=== PATIENT | female | born 1960 | race Caucasian/White ===

== ENCOUNTER 2017-12-01 15:45 | Inpatient (IN) ==
[2017-12-01 16:57] LABS: Basophils % 0.7 %; Eosinophils # 0.1 K/mcL (0.0-0.6); Eosinophils % 2.4 %; Hematocrit 38.6 % (35.3-44.9); Hemoglobin 13.2 g/dL (11.5-15.4); Immature Granulocytes % 0.2 % (0-4); Lymphocytes # 1.9 K/mcL (0.6-4.6); Mean Corpuscular HGB Conc 34.2 g/dL (31.6-35.5); Mean Corpuscular Hemoglobin 30.1 pg (28.0-33.3); Mean Corpuscular Volume 87.9 fL (83.0-100.0); Mean Platelet Volume 10.9 fL (9.4-12.4); Monocytes # 0.5 K/mcL (0.0-1.3); Neutrophils # 2.8 K/mcL (1.6-8.9); Platelet Count 191 K/mcL (140-400); Red Blood Count 4.39 M/mcL (3.82-4.97); Red Cell Distribution Width 12.7 % (11.5-14.5); Segmented Neutrophils % 52.7 %
[2017-12-01 17:04] LABS: BUN/Creatinine Ratio 9 (6-26); Blood Urea Nitrogen 7 mg/dL (6-20); Calcium 10.2 mg/dL (8.6-10.3); Carbon Dioxide 23 mEq/L (23-29); Chloride 109 mEq/L (98-107); Glucose 132 mg/dL (70-105); Osmolality,Calculated 290 (280-300); Potassium 3.3 mEq/L (3.5-5.1); Sodium 140 mEq/L (136-145); Troponin I < 0.03 ng/mL (< 0.04); eGFR For Non-African Americans > 60 (> 60)
[2017-12-01] MEDS ORDERED: Isovue-370 500 ML INFUS..BTL IV ONE (17:18)
--- NOTE | 2017-12-01 17:26 | Emergency Department Note ---
Disposition Clinical Impression: Vertigo Pulmonary embolism Qualifiers: Pulmonary embolism type: other Chronicity: acute Acute cor pulmonale presence: without acute cor pulmonale Qualified Code(s): I26.99 - Other pulmonary embolism without acute cor pulmonale Disposition: Admitted As Inpatient Condition: Good Referrals: Hiro Gerber MD [Primary Care Provider] - Forms: ED Satisfaction Letter Time of Disposition: 19:05 Dizziness HPI - General Chief Complaint: ED Dizziness Stated Complaint: Dizzy Time Seen by Provider: 12/01/17 16:01 Source: patient Mode of arrival: ambulatory Limitations: no limitations Nursing Notes Reviewed: Yes Vital Signs Reviewed: Yes - History of Present Illness HPI Narrative: 57-year-old female otherwise healthy presents an emergency department with dizziness. States this is a similar episode. She was at [employer] and suddenly felt onset of dizziness room spinning. She did not fall hit her head or complaining of any headache. Certain movements make it worse. Laying still makes it better. States this feels similar to her prior history of peripheral vertigo. She denies any nausea. She also does report feeling some lightheadedness and unsteady on her feet. She did experience some shortness of breath and chest discomfort at that time. She did not fall or hit her head. No trauma. Denies any weakness or extremities. No prior history of cardiac ischemic disease. She does not have any additional meclizine available anymore. Pt Subjective Complaint: dizziness - Related Data Home Medications Medication Instructions Recorded Confirmed Fluticasone Propionate Nasal 1 spr NS DAILY PRN 12/01/17 12/01/17 [Flonase] Allergies Allergy/AdvReac Type Severity Reaction Status Date / Time No Known Allergies Allergy Verified 12/01/17 18:51 All systems ED: reviewed and negative except as stated. Review of Systems: As Per HPI Constitutional: Denies: fever, chills ENT ED: Denies: congestion Cardiovascular: Reports: chest pain Respiratory: Reports: dyspnea Gastrointestinal: Denies: abdominal pain, nausea, vomiting Musculoskeletal: Denies: back pain, neck pain Neurological: Denies: headache, weakness, numbness, confusion Past Medical History - Past Medical History Attestation: Yes The following information was validated with the patient. Source: patient Medical history: Reports: arthritis Surgical history: Reports: hysterectomy Psychiatric history: Reports: no psych history - Social History Smoking Status: Never smoker Smokeless Tobacco Status: No Alcohol use: Reports: none Drug use: Reports: none Physical Exam - General Limitations: no limitations General appearance: alert, in distress (Appears uncomfortable she is trying to lay very still) - Head Head exam: atraumatic, normocephalic, normal inspection - Eye Eye exam: Present: normal appearance, PERRL, EOMI, nystagmus (Left, fatiguable) - ENT ENT exam: normal exam, normal oropharynx, mucous membranes moist - Neck Neck exam: Present: normal inspection, full ROM, trachea midline. Absent: tenderness - Chest Chest inspection: Present: normal inspection, symmetric chest wall rise - Respiratory Respiratory exam: Present: normal lung sounds bilaterally. Absent: respiratory distress, wheezes - Cardiovascular Cardiovascular exam: Present: normal rhythm, tachycardia, normal heart sounds - Expanded Cardiovascular Exam Peripheral pulses: 2+: radial (R), radial (L) - Abdominal Exam Abdominal exam: Present: soft, Non-Tender, normal bowel sounds. Absent: tenderness, distention, guarding, rebound, rigidity - Extremities Exam Extremities exam: Present: normal inspection, full ROM, normal capillary refill. Absent: tenderness, pedal edema - Neurological Exam Neurological exam: Present: alert, oriented X3, CN II-XII intact - Expanded Neurological Exam Patient oriented to: Present: person, place, time Speech: Present: fluid speech Cranial nerves: EOM function (II, III, IV, ): Normal, facial sensation (V): Normal, facial palsy (VII): Normal, gag reflex (IX): Normal, spinal accessory function (XI): Normal, tongue deviation (XII): Normal Cerebellar function: finger to nose: Normal, heel to stevens: Normal Motor strength - LUE: 5/5 Motor strength - RUE: 5/5 Motor strength - LLE: 5/5 Motor strength - RLE: 5/5 Upper motor neuron exam: gunnar neglect: Absent bilaterally, pronator drift: Absent bilaterally Sensory exam upper extremity: light touch: Normal Sensory exam lower extremity: light touch: Normal Coma Scale Eye Opening: Spontaneous Coma Scale Motor Response: Obeys Commands Coma Scale Verbal Response: Oriented Coma Scale Total: 15 - Psychiatric Psychiatric exam: Present: normal affect, normal mood - Skin Skin exam: Present: warm, dry, intact, normal color. Absent: rash, cyanosis, diaphoresis Course Course Narrative: Patient presents with acute onset vertigo that worsens with movement and improves sitting still. History of similar presentation. Neurologic exam is normal without any focal deficits. She does have a fatigue level nystagmus that goes to the left. She is also complaining of some lightheadedness and initial shortness of breath with chest discomfort. She is tachycardic on arrival with oxygen saturation 96%. I do suspect this is likely more peripheral vertigo as she does have a nystagmus to the left in her neurologic exam is normal without any focal deficits. Will evaluate for any cardiac source including a D dimer given the tachycardia and symptoms. She is low risk of the wells score. She denies active cancer, hormone use, recent long- distance travel, immobilization or history of blood clots. Patient has been given meclizine for symptoms - Reevaluation(s) Reevaluation #1: D dimer elevated. Will obtain a CT of the chest to evaluate for possible pulmonary embolism. Her labs or otherwise unremarkable. No evidence of renal insufficiency. Troponin lesson 0.03. EKG does not reveal any acute ischemic changes. She states the Antivert is slightly improving her symptoms. Will plan to ambulate her prior to final disposition. Time: 17:18 Reevaluation #2: CT of the chest revealed bilateral pulmonary embolism. There is no evidence of right heart strain seen on CT. Patient remains hemodynamically stable. She denies any G.I. bleed symptoms such as hemoptysis, hematemesis, bloody stool or blacked tarry stools. At this time will initiate her on heparin. Patient will be admitted for treatment of her pulmonary embolism. Time: 18:17 - Consultations Consultation #1: Spoke with on-call hospitalist cristina Bain to admit for pulm embolism without RV strain otherwise hemodynamically stable and peripheral vertigo improved with Antivert. No further orders at this time Time: 19:03 Vital Signs Temperature 97.8 F 12/01/17 15:48 Pulse Rate 115 12/01/17 15:48 Respiratory Rate 18 12/01/17 15:48 Blood Pressure 148/88 12/01/17 15:48 O2 Sat by Pulse Oximetry 96 12/01/17 15:48 Temperature 97.8 F 12/01/17 15:48 Pulse Rate 99 12/01/17 17:36 Respiratory Rate 16 12/01/17 17:36 Blood Pressure 151/99 12/01/17 17:36 O2 Sat by Pulse Oximetry 98 12/01/17 17:36 Oxygen Delivery Oxygen Delivery Room Air Dizziness - MDM Narrative Medical decision making narrative: Patient was discussed with my attending physician who agrees with ED management and final disposition. They independently evaluated the patient. Please refer to their attestation to this encounter for additional information. This note was generated by [employer] voice recognition software and as a result grammatical or spelling errors may occur using this program. - Medical Records Medical records reviewed: Yes I reviewed the patient's medical records. - Lab Data Lab results reviewed: Yes I reviewed the patient's lab results. Result diagrams: 12/01/17 16:31 12/01/17 16:31 Lab Results 12/01/17 12/01/17 12/01/17 Range/Units 16:31 16:31 16:31 WBC 5.3 (4.3-11.1) K/mcL RBC 4.39 (3.82-4.97) M/mcL Hgb 13.2 (11.5-15.4) g/dL Hct 38.6 (35.3-44.9) % MCV 87.9 (83.0-100.0) fL MCH 30.1 (28.0-33.3) pg MCHC 34.2 (31.6-35.5) g/dL RDW 12.7 (11.5-14.5) % Plt Count 191 (140-400) K/mcL MPV 10.9 (9.4-12.4) fL Immature Gran % 0.2 (0-4) % Seg Neutrophils % 52.7 % Lymphocytes % 35.0 % Monocytes % 9.0 % Eosinophils % 2.4 % Basophils % 0.7 % Neutrophils # 2.8 (1.6-8.9) K/mcL Lymphocytes # 1.9 (0.6-4.6) K/mcL Monocytes # 0.5 (0.0-1.3) K/mcL Eosinophils # 0.1 (0.0-0.6) K/mcL Basophils # 0.0 (0.0-0.2) K/mcL D-Dimer 989 H (0-500) ng/mLFEU Sodium 140 (136-145) mEq/L Potassium 3.3 L (3.5-5.1) mEq/L Chloride 109 H (98-107) mEq/L Carbon Dioxide 23 (23-29) mEq/L BUN 7 (6-20) mg/dL Creatinine 0.76 (0.60-1.20) mg/dL Est GFR ( Amer) > 60 (> 60) Est GFR (Non-Af Amer) > 60 (> 60) BUN/Creatinine Ratio 9 (6-26) Glucose 132 H (70-105) mg/dL Calculated Osmolality 290 (280-300) Calcium 10.2 (8.6-10.3) mg/dL Troponin I < 0.03 (< 0.04) ng/mL - Radiology Data Radiology results reviewed: Yes I reviewed the patient's radiology results. Chest CTA 12/01/17 17:18 IMPRESSION: Bilateral pulmonary emboli. No evidence of pulmonary arterial enlargement or right ventricular strain. This finding was discussed with Dr. Mendoza on 12/01/2017 at 1817 hours. 1 cm left-sided thyroid mass. RECOMMENDATIONS: Managing Incidental Thyroid Nodule Detected at CT or MRI or US 1. Further evaluation by thyroid Ultrasound recommended for these incidental nodules: Patient Age 35 years or more - Nodule 1.5 cm in size or greater 2. Follow up thyroid ultrasound also recommend in these scenarios - Solitary nodule with high risk imaging features (locally invasive nodule or suspicious lymph nodes) - Heterogeneous, enlarged thyroid gland. - Increased uptake on PET 3. NO further imaging is recommended in the following scenarios - Any nodule not meeting above criteria. - Those patients with limited life expectancy or significant Co-morbidities. Note: These recommendations do not apply to pts. w/ increased risk for thyroid cancer or pts. with symptomatic thyroid disease. Recommendations for f/u of Incidental Thyroid Nodules (ITN) found on CT, MR, NM and Extrathyroidal US are based upon the ACR white paper and Lim 3-tiered system for managing ITNs: J Am Lupe Radiol. 2015 May;12(2): 143-50 D/ / 12/01/2017 18:22:44 Rahsid Villa MD / [email or web address] Interpreting Provider: Rashid Villa MD - EKG Data EKG attestation: Yes I reviewed and interpreted this EKG. EKG results narrative: EKG performed 1623 normal sinus rhythm 95 beats per minute, left axis deviation , good R wave progression, no ST elevation or depression, no delta waves, Brugada pattern or LVH, intervals within normal limits. Compared to prior EKG performed 08/04/2002 shows similar consistent findings. No acute ischemic changes.
--- NOTE | 2017-12-01 17:30 | Emergency Department Note ---
Disposition Clinical Impression: Vertigo Disposition: Still a Patient Condition: Fair Forms: ED Satisfaction Letter Dizziness HPI - General Chief Complaint: ED Dizziness Stated Complaint: Dizzy Time Seen by Provider: 12/01/17 16:01 Source: patient Mode of arrival: ambulatory Limitations: no limitations Nursing Notes Reviewed: Yes Vital Signs Reviewed: Yes - Related Data Allergies Allergy/AdvReac Type Severity Reaction Status Date / Time No Known Allergies Allergy Verified 12/01/17 15:50 Past Medical History - Past Medical History Medical history: Reports: arthritis Surgical history: Reports: hysterectomy Psychiatric history: Reports: no psych history - Social History Smoking Status: Never smoker Smokeless Tobacco Status: No Alcohol use: Reports: none Drug use: Reports: none Physical Exam - General Limitations: no limitations Course Vital Signs Temperature 97.8 F 12/01/17 15:48 Pulse Rate 115 12/01/17 15:48 Respiratory Rate 18 12/01/17 15:48 Blood Pressure 148/88 12/01/17 15:48 O2 Sat by Pulse Oximetry 96 12/01/17 15:48 Temperature 97.8 F 12/01/17 15:48 Pulse Rate 99 12/01/17 17:36 Respiratory Rate 16 12/01/17 17:36 Blood Pressure 151/99 12/01/17 17:36 O2 Sat by Pulse Oximetry 98 12/01/17 17:36 Oxygen Delivery Oxygen Delivery Room Air Dizziness - Lab Data Result diagrams: 12/01/17 16:31 12/01/17 16:31 Lab Results 12/01/17 12/01/17 12/01/17 Range/Units 16:31 16:31 16:31 WBC 5.3 (4.3-11.1) K/mcL RBC 4.39 (3.82-4.97) M/mcL Hgb 13.2 (11.5-15.4) g/dL Hct 38.6 (35.3-44.9) % MCV 87.9 (83.0-100.0) fL MCH 30.1 (28.0-33.3) pg MCHC 34.2 (31.6-35.5) g/dL RDW 12.7 (11.5-14.5) % Plt Count 191 (140-400) K/mcL MPV 10.9 (9.4-12.4) fL Immature Gran % 0.2 (0-4) % Seg Neutrophils % 52.7 % Lymphocytes % 35.0 % Monocytes % 9.0 % Eosinophils % 2.4 % Basophils % 0.7 % Neutrophils # 2.8 (1.6-8.9) K/mcL Lymphocytes # 1.9 (0.6-4.6) K/mcL Monocytes # 0.5 (0.0-1.3) K/mcL Eosinophils # 0.1 (0.0-0.6) K/mcL Basophils # 0.0 (0.0-0.2) K/mcL D-Dimer 989 H (0-500) ng/mLFEU Sodium 140 (136-145) mEq/L Potassium 3.3 L (3.5-5.1) mEq/L Chloride 109 H (98-107) mEq/L Carbon Dioxide 23 (23-29) mEq/L BUN 7 (6-20) mg/dL Creatinine 0.76 (0.60-1.20) mg/dL Est GFR ( Amer) > 60 (> 60) Est GFR (Non-Af Amer) > 60 (> 60) BUN/Creatinine Ratio 9 (6-26) Glucose 132 H (70-105) mg/dL Calculated Osmolality 290 (280-300) Calcium 10.2 (8.6-10.3) mg/dL Troponin I < 0.03 (< 0.04) ng/mL Attestation Statement - Attestation Attestation: I, Sadiq Mendoza, examined this patient and my medical decision-making was reviewed with the [employer]CRETE [employer] OPERATOR/PA/Advanced Practice Nurse/Resident Physician. I agree with the documented findings, disposition and treatment plan as described except to the extent set forth below. 57-year-old female presents emergency Department with concerns of acute onset "dizziness" patient states she was shopping when she had acute onset of dizziness that she described as unsteadiness on her feet. Patient states that this feels similar to her previous vertigo. The patient remained still of the symptoms resolve within the next minute. Symptoms return and worsen with movement of the head. Denies recent trauma. No other changes in her medications. Denies fever, chills, nausea, vomiting, coughing. No focal neurologic deficits noted by patient or her and my initial exam. Patient does have a horizontal nystagmus. Patient was given meclizine emergency department with significant improvement of her her unsteadiness. Patient also described having some mild shortness of breath on the exertion of his symptoms however she states that it was associated with her anxiety and this is not abnormal for her. However due to the acute onset of anxiety and shortness of breath and her tachycardia in the emergency department we obtained a d-dimer which is elevated. CTA showed PE in the right middle lobe. Patient will be given heparin and admitted to the hospitalist.
[2017-12-01] MEDS ORDERED: *HR* Heparin 5,000 UNIT/ML VIAL IVP PRN (18:42)
[2017-12-01] MEDS ORDERED: *HR* Heparin 5,000 UNIT/ML VIAL IVP ONE (18:42)
[2017-12-01 19:31] LABS: Heparin anti-factor XA UFH 0.05 IU/mL (0.30-0.70)
[2017-12-01 19:32] LABS: INR 0.9; Prothrombin Time 10.2 Seconds (9.4-12.1)
[2017-12-01] MEDS: Heparin 25,000 UNIT/500 ML D5W 25,000 UNIT/500 ML BAG IVC SCH (19:47)
[2017-12-01] MEDS ORDERED: Potassium Chloride Elixir 20 MEQ/15 ML UDC PO ONE (21:25)
--- NOTE | 2017-12-01 21:48 | Internal Med History&Physical ---
Date of Encounter: 12/01/17 Time of Encounter: 21:46 Internal Medicine - H&P: HPI Chief complaint: dizziness Admitted From: Home Plans for Post Hospital Care: Home History of present illness: Ms. Dempsey is a 57 year old woman who only reports a history of mild arthritis for which she takes meloxicam periodically and intermittent vertigo for which she takes meclizine as needed. She presents to the ER today complaining of dizziness and feeling as though it is her regular episode however that were stented normal and persisting without associated chest pain or diaphoresis. She had mild shortness of breath which she attributed to the anxiety of her vertical episode but quickly resolved. She did not fall or suffer loss of consciousness nor did she have headache at any time. He only complained of the room spinning. She denies feeling lightheaded or unsteadiness on her feet. No trauma reported. Prior history of cardiac disease, not on hormonal supplementation, no history of venous thrombo- embolic disease in the past or in her family, no recent travel, no over-the- counter supplements. On arrival shows multi tachycardic but saturating 96% on room air. A d-dimer was done which was elevated and a subsequent chest CT showed bilateral pulmonary embolism with no evidence of right heart strain seen on CT. She remained hemodynamically stable and she was started on heparin drip . She denies any recent bleeding episodes . She is now admitted for further management. On my assessment she was calm and lying in bed comfortably in no acute distress. Past Med Surg Social Fam HX - Past Medical History Medical history: arthritis Psychiatric history: no psych history - Past Surgical History Surgical History: hysterectomy Additional surgical history: carpel tunnel - Social History Smoking Status: Never smoker Smokeless Tobacco Status: No Alcohol use: none Drug use: none - Family History Mother Name: Maye Oswald Family Member Ethnicity: Non- Living Status: Age at : 74 Cause of : Ovarian Cancer Hx Family Cardiac Disorders: Yes (valve replacemet) Hx Family Cancer: Yes (ovarian) Internal Medicine - H&P: Meds Fluticasone Propionate Nasal [Flonase] 1 spr NS DAILY PRN 12/01/17 [History] 3 Allergy/AdvReac Type Severity Reaction Status Date / Time No Known Allergies Allergy Verified 12/01/17 18:51 All Systems PM: A 10-system review of systems was performed and is negative for pertinent findings except as documented above in the HPI. - Constitutional Vitals: Temp Pulse Resp BP Pulse Ox 97.8 F 96 16 126/82 97 12/01/17 20:43 12/01/17 20:43 12/01/17 20:43 12/01/17 20:43 12/01/17 20:43 Exam: Vitals: Reviewed General: Well-developed female lying comfortably in bed in no acute distress Skin: Warm and supple with no lesions or ulcers. HEENT: Moist mucous membranes. No conjunctivae pallor. Neck: No lymphadenopathy. No JVD. No carotid bruits. No palpable thyroid. Chest: Normal thoracic expansion. Normal breath sounds. Clear to auscultation. Heart: Normal S1 & S2; rhythmic. No rubs or murmurs. Abdomen: Non-distended, soft and non-tender to palpation. No peritoneal reaction. Liver is normal in size. Spleen is not palpable. Extremities: No clubbing, cyanosis or edema. No calf tenderness. Normal distal pulses. Neurological: Awake, alert and oriented to person, place and time. No focal deficits. Psych: Affect appropriate. Internal Med - H&P Results - Labs CBC & Chem 7: 12/01/17 16:31 12/01/17 16:31 - Assessment and plan (1) Pulmonary embolism Current Visit: Yes Status: Acute Assessment and plan: Unclear etiology as she presents no risk factors. She is low probability as per the Wells score for PE so this is strange. -We will send a hypercoagulable workup however one would presume that if she had such a condition this would have presented earlier in life. Continue heparin drip Obtain a transthoracic echo for right heart evaluation Supplemental oxygen as needed Discussed the options for oral anticoagulants moving forward and duration. Remain on telemetry with close observation. Qualifiers: Pulmonary embolism type: other Chronicity: acute Acute cor pulmonale presence: without acute cor pulmonale Qualified Code(s): I26.99 - Other pulmonary embolism without acute cor pulmonale (2) Hypokalemia Current Visit: Yes Status: Acute Assessment and plan: Will supplement with 1 dose of KCL 40mEq and recheck value. (3) Arthritis Current Visit: Yes Status: Acute Assessment and plan: Pain meds as needed will be ordered. (4) Vertigo Current Visit: Yes Status: Acute Assessment and plan: Currently not active. Can resume meclizine when necessary. - Time Spent With Patient Total time spent is greater than 50% in coordination of care (as documented) at patient's floor/unit and/or counseling patient: Greater than 35 minutes
[2017-12-01] MEDS ORDERED: Acetaminophen 325 MG TABLET PO PRN (21:52)
[2017-12-02 02:25] LABS: Basophils % 0.3 %; Eosinophils % 0.3 %; Hematocrit 38.3 % (35.3-44.9); Immature Granulocytes % 0.3 % (0-4); Lymphocytes # 1.7 K/mcL (0.6-4.6); Lymphocytes % 24.2 %; Mean Corpuscular HGB Conc 33.9 g/dL (31.6-35.5); Mean Corpuscular Hemoglobin 29.2 pg (28.0-33.3); Mean Corpuscular Volume 86.1 fL (83.0-100.0); Mean Platelet Volume 10.8 fL (9.4-12.4); Monocytes # 0.5 K/mcL (0.0-1.3); Neutrophils # 4.8 K/mcL (1.6-8.9); Platelet Count 213 K/mcL (140-400); Red Blood Count 4.45 M/mcL (3.82-4.97); Red Cell Distribution Width 13.1 % (11.5-14.5); Segmented Neutrophils % 67.9 %
[2017-12-02 02:40] LABS: INR 1.1; Prothrombin Time 12.1 Seconds (9.4-12.1)
[2017-12-02 02:45] LABS: Alanine Aminotransferase 15 Units/L (7-52); Albumin 4.2 g/dL (3.5-5.7); Albumin/Globulin Ratio 1.6 (1.1-2.2); Alkaline Phosphatase 68 Units/L (34-104); Aspartate Amino Transferase 14 Units/L (13-39); BUN/Creatinine Ratio 9 (6-26); Bilirubin,Indirect 0.4 mg/dL (0.0-1.2); Bilirubin,Total 0.4 mg/dL (0.3-1.0); Blood Urea Nitrogen 6 mg/dL (6-20); Calcium 10.3 mg/dL (8.6-10.3); Carbon Dioxide 24 mEq/L (23-29); Chloride 113 mEq/L (98-107); Globulin 2.7 g/dL (2.4-3.5); Glucose 115 mg/dL (70-105); Osmolality,Calculated 295 (280-300); Potassium 3.9 mEq/L (3.5-5.1); Sodium 143 mEq/L (136-145); Total Protein 6.9 g/dL (6.4-8.9); eGFR For Non-African Americans > 60 (> 60)
[2017-12-02 02:59] LABS: Activated Partial Thrombo Time 158.4 Seconds (26.0-36.0)
[2017-12-02 06:43] LABS: Estimated Average Glucose 123 mg/dl; Hemoglobin A1C 5.9 %
[2017-12-02] MEDS: Fluticasone Propionate Nasal 50 MCG/SPRAY BOTTLE NS SCH (09:29)
--- NOTE | 2017-12-02 10:10 | Internal Med Progress Note ---
<Dennis Winters - Last Filed: 12/02/17 15:42> Date of Encounter: 12/02/17 Time of Encounter: 09:00 - Assessment and plan (1) Pulmonary embolism Current Visit: Yes Status: Acute Assessment and plan: -CT angiogram found evidence of bilateral PE -Unclear etiology at this time, no known risk factors -Anticoagulation workup pending -transthoracic echo pending Plan - Currently on Heparin -Add Coumadin tonight monitor INR to reach therapuetic level -Establish patient to Coumadin clinic Qualifiers: Pulmonary embolism type: other Chronicity: acute Acute cor pulmonale presence: without acute cor pulmonale Qualified Code(s): I26.99 - Other pulmonary embolism without acute cor pulmonale (2) Vertigo Current Visit: Yes Status: Chronic Assessment and plan: Known history Not currently present continue meclizine when needed (3) Arthritis Current Visit: Yes Status: Acute Assessment and plan: Pain management as necessary - Subjective Interval history: Patient is a 49-year-old female with a past medical history of vertigo presented to the emergency department yesterday due to dizziness. Patient was at [facility] and suddenly felt onset of dizziness in the room spinning. There was no syncope. Patient went to the ED where workup led to a CT angiogram revealing bilateral pulmonary embolism. No evidence of right heart strain. Patient remained hemodynamically stable. Patient was initiated on heparin. Today the patient is doing well denies shortness of breath, chest pain, fever, chills, night sweats, calf pain, lower extremity swelling. - Constitutional Vitals: Temp Pulse Resp BP Pulse Ox 98.7 F 82 16 118/65 96 12/02/17 06:39 12/02/17 06:39 12/02/17 06:39 12/02/17 06:39 12/02/17 09:32 General appearance: Present: A&O X 3, no acute distress, answers questions appropriately - Head Head exam: Present: atraumatic, normal inspection, normocephalic - Eye Eye exam: Present: EOMI, normal appearance, PERRL - Respiratory Respiratory exam: Present: CTAB. Absent: rales, respiratory distress, rhonchi, stridor, wheezes, tachypnea - Cardiovascular Cardiovascular exam: Present: RRR, +S1, +S2. Absent: gallop, rubs, +S3, +S4, systolic murmur - Psychiatric Psychiatric exam: Present: normal affect, normal mood Internal Medicine: Result - Labs CBC & Chem 7: 12/02/17 01:49 12/02/17 01:49 Labs: Short CBC 12/02/17 Range/Units 01:49 WBC 7.1 (4.3-11.1) K/mcL Hgb 13.0 (11.5-15.4) g/dL Hct 38.3 (35.3-44.9) % Plt Count 213 (140-400) K/mcL Neutrophils # 4.8 (1.6-8.9) K/mcL BMP 12/02/17 01:49 Sodium 143 Potassium 3.9 Chloride 113 H Carbon Dioxide 24 BUN 6 Creatinine 0.65 Glucose 115 H Calcium 10.3 Liver Function 12/02/17 Range/Units 01:49 Total Bilirubin 0.4 (0.3-1.0) mg/dL Direct Bilirubin 0.0 (0.0-0.2) mg/dL AST 14 (13-39) Units/L ALT 15 (7-52) Units/L Alkaline Phosphatase 68 (34-104) Units/L Albumin 4.2 (3.5-5.7) g/dL - ABG Interpretation ABG results: PT/INR, D-dimer PT 12.1 Seconds (9.4-12.1) 12/02/17 01:49 D-Dimer 989 ng/mLFEU (0-500) H 12/01/17 16:31 Consult Discharge Plan - Plan Referrals: Hiro Gerber MD [Primary Care Provider] - <Gregg Carmona - Last Filed: 12/02/17 19:48> Date of Encounter: 12/02/17 - Assessment and plan (1) Pulmonary embolism Current Visit: Yes Status: Acute Qualifiers: Pulmonary embolism type: other Chronicity: acute Acute cor pulmonale presence: without acute cor pulmonale Qualified Code(s): I26.99 - Other pulmonary embolism without acute cor pulmonale (2) Vertigo Current Visit: Yes Status: Chronic (3) Hypokalemia Current Visit: Yes Status: Acute (4) Arthritis Current Visit: Yes Status: Acute - Constitutional Vitals: Temp Pulse Resp BP Pulse Ox 98.5 F 81 16 127/85 95 12/02/17 17:05 12/02/17 17:05 12/02/17 17:05 12/02/17 17:05 12/02/17 17:05 Internal Medicine: Result - Labs CBC & Chem 7: 12/02/17 01:49 12/02/17 01:49 Labs: Short CBC 12/02/17 Range/Units 01:49 WBC 7.1 (4.3-11.1) K/mcL Hgb 13.0 (11.5-15.4) g/dL Hct 38.3 (35.3-44.9) % Plt Count 213 (140-400) K/mcL Neutrophils # 4.8 (1.6-8.9) K/mcL BMP 12/02/17 01:49 Sodium 143 Potassium 3.9 Chloride 113 H Carbon Dioxide 24 BUN 6 Creatinine 0.65 Glucose 115 H Calcium 10.3 Liver Function 12/02/17 Range/Units 01:49 Total Bilirubin 0.4 (0.3-1.0) mg/dL Direct Bilirubin 0.0 (0.0-0.2) mg/dL AST 14 (13-39) Units/L ALT 15 (7-52) Units/L Alkaline Phosphatase 68 (34-104) Units/L Albumin 4.2 (3.5-5.7) g/dL - ABG Interpretation ABG results: PT/INR, D-dimer PT 12.1 Seconds (9.4-12.1) 12/02/17 01:49 D-Dimer 989 ng/mLFEU (0-500) H 12/01/17 16:31 - Impressions Impressions Echocardiogram 12/02/17 21:27 Impressions: LVEF 70%. Normal LV chamber size, wall thickness and function. Mild left ventricular diastolic dysfunction. Normal right ventricular structure and function. RV:LV less than one. Mild pulmonic regurgitation. No evidence of pulmonary hypertension. Left Ventricular Wall Motion: Rest Echo Findings All wall segments showed normal motion. Findings: Study Quality * Technically adequate exam. ECG Findings * Normal sinus rhythm. Left Ventricle * LVEF 70%. * Normal LV chamber size, wall thickness and function. * Mild left ventricular diastolic dysfunction. Right Ventricle * Normal right ventricular structure and function. * RV:LV less than one. Left Atrium * Mildly dilated left atrium. Right Atrium * Normal right atrial size. Aortic Valve * Trileaflet aortic valve with normal function. * No aortic regurgitation. * No aortic stenosis. Mitral Valve * Normal mitral valve structure and function. * No mitral regurgitation. * No mitral stenosis. Tricuspid Valve * Normal tricuspid valve structure and function. * Trace tricuspid regurgitation. * No evidence of pulmonary hypertension. Pulmonic Valve * Normal pulmonic valve structure. * Mild pulmonic regurgitation. Aorta * Normally sized aortic root. Pericardium * The pericardium appears normal. IVC * Normal IVC dimensions and inspiratory collapse. Pulmonary Artery * Normal visualized portions of the main pulmonary artery. - Attending Attestation I examined this patient and my medical decision-making was reviewed with the Resident Physician on 12/02/17. I agree with the documented findings, disposition and treatment plan as described except to the extent set forth below. Ms Dempsey is currently admitted for acute bilateral PE. She remains moderate to high risk due to potential for worsening clinical status. Ms Dempsey is doing OK. No dyspnea at this time. She is to start on coumadin. No fever or chills. Exam alert Comfortable Mucus membranes dry Heart reg No wheeze abd soft No edema I/P 1. PE bilateral 2. Chronic vertigo. Further diagnoses and plan as above.
[2017-12-02] MEDS: *HR* Heparin 5,000 UNIT/ML VIAL IVP PRN (11:12)
[2017-12-02] MEDS: Heparin 25,000 UNIT/500 ML D5W 25,000 UNIT/500 ML BAG IVC SCH ×2 (11:27→22:12)
[2017-12-02 12:48] LABS: Plt Function ADP Closure TIME 69 Seconds (57-162); Plt Function Epi Closure Time 88 Seconds (74-171)
[2017-12-02] MEDS ORDERED: *HR* Warfarin 5 MG TABLET PO ONE (18:00)
[2017-12-02] MEDS ORDERED: Warfarin perPT PO PRN (18:00)
[2017-12-03 06:16] LABS: INR 1.1
[2017-12-03] MEDS: Fluticasone Propionate Nasal 50 MCG/SPRAY BOTTLE NS SCH (07:51)
[2017-12-03 09:34] LABS: Basophils % 0.7 %; Eosinophils # 0.1 K/mcL (0.0-0.6); Eosinophils % 1.5 %; Hematocrit 41.3 % (35.3-44.9); Hemoglobin 13.8 g/dL (11.5-15.4); Immature Granulocytes % 0.2 % (0-4); Lymphocytes # 1.3 K/mcL (0.6-4.6); Lymphocytes % 27.5 %; Mean Corpuscular HGB Conc 33.4 g/dL (31.6-35.5); Mean Corpuscular Hemoglobin 29.5 pg (28.0-33.3); Mean Corpuscular Volume 88.2 fL (83.0-100.0); Mean Platelet Volume 10.8 fL (9.4-12.4); Monocytes # 0.3 K/mcL (0.0-1.3); Monocytes % 7.2 %; Neutrophils # 2.9 K/mcL (1.6-8.9); Platelet Count 192 K/mcL (140-400); Red Blood Count 4.68 M/mcL (3.82-4.97); Red Cell Distribution Width 13.2 % (11.5-14.5); Segmented Neutrophils % 62.9 %
[2017-12-03 09:50] LABS: BUN/Creatinine Ratio 11 (6-26); Blood Urea Nitrogen 8 mg/dL (6-20); Calcium 10.2 mg/dL (8.6-10.3); Carbon Dioxide 23 mEq/L (23-29); Chloride 110 mEq/L (98-107); Glucose 168 mg/dL (70-105); Osmolality,Calculated 290 (280-300); Potassium 3.7 mEq/L (3.5-5.1); Sodium 139 mEq/L (136-145); eGFR For Non-African Americans > 60 (> 60)
--- NOTE | 2017-12-03 09:50 | Internal Med Progress Note ---
<Dennis Winters W - Last Filed: 12/03/17 11:35> Date of Encounter: 12/03/17 Time of Encounter: 09:50 - Assessment and plan (1) Pulmonary embolism Current Visit: Yes Status: Acute Assessment and plan: -CT angiogram found evidence of bilateral PE -Unclear etiology at this time, no known risk factors -Anticoagulation workup pending -ECHO found no significant clinical findings. EF 70% Plan - Continue heparin to coumadin bridge -Working with Pharmacy and SW to consider lovenox short term - Establish patient to Coumadin clinic Qualifiers: Pulmonary embolism type: other Chronicity: acute Acute cor pulmonale presence: without acute cor pulmonale Qualified Code(s): I26.99 - Other pulmonary embolism without acute cor pulmonale (2) Vertigo Current Visit: Yes Status: Chronic Assessment and plan: Known history continue meclizine when needed (3) Arthritis Current Visit: Yes Status: Acute Assessment and plan: Pain management as necessary (4) Elevated TSH Current Visit: Yes Status: Acute Assessment and plan: TSH 8.4 no known history of thyroid disease CT of chest found incidental 1 cm L thyroid mass Free T4 and total T3 and T4 ordered (5) DVT prophylaxis Current Visit: Yes Status: Acute Assessment and plan: On heparin and Coumadin - Subjective Interval history: Today patient is doing well. Patient has no new complaints except for a mild headache she ascribes this to sinusitis. Patient denies shortness of breath' chest pain, swelling, fatigue, abdominal pain, pelvic pain. Patient admits to being anxious about her hospitalization and the plan moving forward. Patient received her first dose of Coumadin yesterday. . - Constitutional Vitals: Temp Pulse Resp BP Pulse Ox 98 F 89 17 146/95 98 12/03/17 04:00 12/03/17 07:50 12/03/17 07:50 12/03/17 07:50 12/03/17 07:50 General appearance: Present: A&O X 3, no acute distress, answers questions appropriately - Head Head exam: Present: atraumatic, normal inspection, normocephalic - Eye Eye exam: Present: EOMI, PERRL - Respiratory Respiratory exam: Present: CTAB. Absent: rales, respiratory distress, rhonchi, stridor, wheezes, tachypnea - Cardiovascular Cardiovascular exam: Present: RRR, +S1, +S2. Absent: diastolic murmur, irregular rhythm, +S3, +S4, systolic murmur, tachycardia - Neurological Exam Neurological exam: Present: alert, CN II-XII intact, oriented X3 - Psychiatric Psychiatric exam: Present: normal affect, normal mood Internal Medicine: Result - Labs CBC & Chem 7: 12/03/17 08:46 12/03/17 08:46 Labs: Short CBC 12/03/17 Range/Units 08:46 WBC 4.6 (4.3-11.1) K/mcL Hgb 13.8 (11.5-15.4) g/dL Hct 41.3 (35.3-44.9) % Plt Count 192 (140-400) K/mcL Neutrophils # 2.9 (1.6-8.9) K/mcL - ABG Interpretation ABG results: PT/INR, D-dimer PT 12.0 Seconds (9.4-12.1) 12/03/17 05:32 D-Dimer 989 ng/mLFEU (0-500) H 12/01/17 16:31 - Impressions Impressions Echocardiogram 12/02/17 21:27 Impressions: LVEF 70%. Normal LV chamber size, wall thickness and function. Mild left ventricular diastolic dysfunction. Normal right ventricular structure and function. RV:LV less than one. Mild pulmonic regurgitation. No evidence of pulmonary hypertension. Left Ventricular Wall Motion: Rest Echo Findings All wall segments showed normal motion. Findings: Study Quality * Technically adequate exam. ECG Findings * Normal sinus rhythm. Left Ventricle * LVEF 70%. * Normal LV chamber size, wall thickness and function. * Mild left ventricular diastolic dysfunction. Right Ventricle * Normal right ventricular structure and function. * RV:LV less than one. Left Atrium * Mildly dilated left atrium. Right Atrium * Normal right atrial size. Aortic Valve * Trileaflet aortic valve with normal function. * No aortic regurgitation. * No aortic stenosis. Mitral Valve * Normal mitral valve structure and function. * No mitral regurgitation. * No mitral stenosis. Tricuspid Valve * Normal tricuspid valve structure and function. * Trace tricuspid regurgitation. * No evidence of pulmonary hypertension. Pulmonic Valve * Normal pulmonic valve structure. * Mild pulmonic regurgitation. Aorta * Normally sized aortic root. Pericardium * The pericardium appears normal. IVC * Normal IVC dimensions and inspiratory collapse. Pulmonary Artery * Normal visualized portions of the main pulmonary artery. Consult Discharge Plan - Plan Referrals: Hiro Gerber MD [Primary Care Provider] - Prescriptions: Enoxaparin [Lovenox] 100 mg SQ BID #10 syr <Gregg Carmona - Last Filed: 12/03/17 14:47> Date of Encounter: 12/03/17 - Assessment and plan (1) Pulmonary embolism Current Visit: Yes Status: Acute Qualifiers: Pulmonary embolism type: other Chronicity: acute Acute cor pulmonale presence: without acute cor pulmonale Qualified Code(s): I26.99 - Other pulmonary embolism without acute cor pulmonale (2) Vertigo Current Visit: Yes Status: Chronic (3) Hypokalemia Current Visit: Yes Status: Resolved (4) Arthritis Current Visit: Yes Status: Acute (5) Thyroid nodule Current Visit: Yes Status: Suspected Assessment and plan: Needs further work up outpatient. - Constitutional Vitals: Temp Pulse Resp BP Pulse Ox 98 F 89 17 146/95 98 12/03/17 04:00 12/03/17 07:50 12/03/17 07:50 12/03/17 07:50 12/03/17 07:50 Internal Medicine: Result - Labs CBC & Chem 7: 12/03/17 08:46 12/03/17 08:46 Labs: Short CBC 12/03/17 Range/Units 08:46 WBC 4.6 (4.3-11.1) K/mcL Hgb 13.8 (11.5-15.4) g/dL Hct 41.3 (35.3-44.9) % Plt Count 192 (140-400) K/mcL Neutrophils # 2.9 (1.6-8.9) K/mcL BMP 12/03/17 08:46 Sodium 139 Potassium 3.7 Chloride 110 H Carbon Dioxide 23 BUN 8 Creatinine 0.74 Glucose 168 H Calcium 10.2 - ABG Interpretation ABG results: PT/INR, D-dimer PT 12.0 Seconds (9.4-12.1) 12/03/17 05:32 D-Dimer 989 ng/mLFEU (0-500) H 12/01/17 16:31 - Impressions Impressions Echocardiogram 12/02/17 21:27 Impressions: LVEF 70%. Normal LV chamber size, wall thickness and function. Mild left ventricular diastolic dysfunction. Normal right ventricular structure and function. RV:LV less than one. Mild pulmonic regurgitation. No evidence of pulmonary hypertension. Left Ventricular Wall Motion: Rest Echo Findings All wall segments showed normal motion. Findings: Study Quality * Technically adequate exam. ECG Findings * Normal sinus rhythm. Left Ventricle * LVEF 70%. * Normal LV chamber size, wall thickness and function. * Mild left ventricular diastolic dysfunction. Right Ventricle * Normal right ventricular structure and function. * RV:LV less than one. Left Atrium * Mildly dilated left atrium. Right Atrium * Normal right atrial size. Aortic Valve * Trileaflet aortic valve with normal function. * No aortic regurgitation. * No aortic stenosis. Mitral Valve * Normal mitral valve structure and function. * No mitral regurgitation. * No mitral stenosis. Tricuspid Valve * Normal tricuspid valve structure and function. * Trace tricuspid regurgitation. * No evidence of pulmonary hypertension. Pulmonic Valve * Normal pulmonic valve structure. * Mild pulmonic regurgitation. Aorta * Normally sized aortic root. Pericardium * The pericardium appears normal. IVC * Normal IVC dimensions and inspiratory collapse. Pulmonary Artery * Normal visualized portions of the main pulmonary artery. - Attending Attestation I examined this patient and my medical decision-making was reviewed with the Resident Physician on 12/03/17. I agree with the documented findings, disposition and treatment plan as described except to the extent set forth below. Ms Dempsey is currently admitted for acute bilateral PEs. She remains moderate to high risk due to potential for worsening clinical status. Ms Dempsey if feeling OK. She is eating breakfast. She is tolerating heparin and coumadin. No fever or chills. No CP or SOB. Able to ambulate without difficulty. Exam Alert Comfortable Mucus membranes dry Heart not tachy No wheeze Abd soft No edema I/P 1. Acute bilateral PEs - currently on heparin and coumadin. Working on discharge options at this time. 2. Thyroid lesion - TSH elevated but free T4 low normal. Will need follow up outpatient. 3. Chronic vertigo. Further diagnoses and plan as above.
[2017-12-03 12:14] LABS: Triiodothyronine (T3) Total 1.25 ng/mL (0.87-1.78)
--- NOTE | 2017-12-03 15:02 | Electrocardiograph Report ---
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
[2017-12-03] MEDS ORDERED: *HR* Warfarin 5 MG TABLET PO ONE (18:00)
[2017-12-03 20:46] LABS: APTT (LE Anticoag) >150 sec (32-48); Diluted Russell Viper Venom 30 sec (33-44); LE APTT D Heparin Neutralized 46 sec (32-48); LE Coag Reptilase Time 19.1 sec (<=21.9); PT (LE-Anticoag) 14.4 sec (12.0-15.5); Thrombin Time >150.0 sec (14.7-19.5)
[2017-12-04 05:53] LABS: Basophils % 0.3 %; Eosinophils # 0.1 K/mcL (0.0-0.6); Hematocrit 38.7 % (35.3-44.9); Hemoglobin 12.9 g/dL (11.5-15.4); Immature Granulocytes % 0.3 % (0-4); Lymphocytes # 1.7 K/mcL (0.6-4.6); Lymphocytes % 28.9 %; Mean Corpuscular HGB Conc 33.3 g/dL (31.6-35.5); Mean Corpuscular Hemoglobin 29.2 pg (28.0-33.3); Mean Corpuscular Volume 87.6 fL (83.0-100.0); Mean Platelet Volume 10.6 fL (9.4-12.4); Monocytes # 0.5 K/mcL (0.0-1.3); Monocytes % 8.9 %; Neutrophils # 3.5 K/mcL (1.6-8.9); Platelet Count 192 K/mcL (140-400); Red Blood Count 4.42 M/mcL (3.82-4.97); Red Cell Distribution Width 13.2 % (11.5-14.5); Segmented Neutrophils % 60.6 %
[2017-12-04 05:58] LABS: Heparin anti-factor XA UFH 0.3 IU/mL (0.30-0.70); INR 1.3; Prothrombin Time 15.1 Seconds (9.4-12.1)
[2017-12-04 06:14] LABS: BUN/Creatinine Ratio 13 (6-26); Blood Urea Nitrogen 8 mg/dL (6-20); Carbon Dioxide 24 mEq/L (23-29); Chloride 112 mEq/L (98-107); Glucose 124 mg/dL (70-105); Osmolality,Calculated 294 (280-300); Potassium 3.9 mEq/L (3.5-5.1); Sodium 142 mEq/L (136-145); eGFR For Non-African Americans > 60 (> 60)
[2017-12-04] MEDS: Fluticasone Propionate Nasal 50 MCG/SPRAY BOTTLE NS SCH (07:31)
--- NOTE | 2017-12-04 09:47 | Internal Med Progress Note ---
<Dennis Winters W - Last Filed: 12/04/17 14:47> Date of Encounter: 12/04/17 Time of Encounter: 09:43 - Assessment and plan (1) Pulmonary embolism Current Visit: Yes Status: Acute Assessment and plan: -CT angiogram found evidence of bilateral PE -Unclear etiology at this time, no known risk factors -Anticoagulation workup pending -ECHO found no significant clinical findings. EF 70% Plan - Continue heparin to coumadin bridge -Working with Pharmacy and SW to consider lovenox short term - Establish patient to Coumadin clinic Qualifiers: Pulmonary embolism type: other Chronicity: acute Acute cor pulmonale presence: without acute cor pulmonale Qualified Code(s): I26.99 - Other pulmonary embolism without acute cor pulmonale (2) Vertigo Current Visit: Yes Status: Chronic Assessment and plan: Known history continue meclizine when needed (3) Arthritis Current Visit: Yes Status: Acute Assessment and plan: Pain management as necessary (4) Thyroid nodule Current Visit: Yes Status: Suspected Assessment and plan: Incidental finding on CT Follow up outpatient (5) DVT prophylaxis Current Visit: Yes Status: Acute Assessment and plan: On heparin and Coumadin - Subjective Interval history: Examination is doing very well. Patient has no new complaints. She is very anxious about her diagnosis and her general state of health but believes this is just because she is hyper focused because she is usually generally healthy. Denies chest pain, shortness of breath, headache, lower extremity swelling, pain. - Constitutional Vitals: Temp Pulse Resp BP Pulse Ox 98.6 F 86 18 122/81 97 12/04/17 04:19 12/04/17 07:13 12/04/17 07:13 12/04/17 07:13 12/04/17 07:13 General appearance: Present: A&O X 3, no acute distress, answers questions appropriately - Head Head exam: Present: atraumatic, normal inspection, normocephalic - Eye Eye exam: Present: EOMI, PERRL - Respiratory Respiratory exam: Present: CTAB. Absent: accessory muscle use, decreased breath sounds, rales, respiratory distress, rhonchi, stridor, wheezes, tachypnea - Cardiovascular Cardiovascular exam: Present: RRR, +S1, +S2. Absent: diastolic murmur, distant heart sounds, gallop, irregular rhythm, +S3, +S4, systolic murmur, tachycardia - Neurological Exam Neurological exam: Present: alert, CN II-XII intact, oriented X3, no focal deficits - Psychiatric Psychiatric exam: Present: anxious, normal affect, normal mood Internal Medicine: Result - Labs CBC & Chem 7: 12/04/17 05:28 12/04/17 05:28 Labs: Short CBC 12/04/17 Range/Units 05:28 WBC 5.8 (4.3-11.1) K/mcL Hgb 12.9 (11.5-15.4) g/dL Hct 38.7 (35.3-44.9) % Plt Count 192 (140-400) K/mcL Neutrophils # 3.5 (1.6-8.9) K/mcL BMP 12/03/17 12/04/17 08:46 05:28 Sodium 139 142 Potassium 3.7 3.9 Chloride 110 H 112 H Carbon Dioxide 23 24 BUN 8 8 Creatinine 0.74 0.62 Glucose 168 H 124 H Calcium 10.2 10.0 - ABG Interpretation ABG results: PT/INR, D-dimer PT 15.1 Seconds (9.4-12.1) H 12/04/17 05:28 D-Dimer 989 ng/mLFEU (0-500) H 12/01/17 16:31 Consult Discharge Plan - Plan Referrals: Hiro Gerber MD [Primary Care Provider] - Prescriptions: Enoxaparin [Lovenox] 100 mg SQ BID #10 syr <Gregg Carmona - Last Filed: 12/04/17 17:59> Date of Encounter: 12/04/17 - Assessment and plan (1) Pulmonary embolism Current Visit: Yes Status: Acute Qualifiers: Pulmonary embolism type: other Chronicity: acute Acute cor pulmonale presence: without acute cor pulmonale Qualified Code(s): I26.99 - Other pulmonary embolism without acute cor pulmonale (2) Vertigo Current Visit: Yes Status: Chronic (3) Hypokalemia Current Visit: Yes Status: Resolved (4) Arthritis Current Visit: Yes Status: Acute (5) Thyroid nodule Current Visit: Yes Status: Suspected - Constitutional Vitals: Temp Pulse Resp BP Pulse Ox 98.6 F 101 17 136/82 98 12/04/17 04:19 12/04/17 15:37 12/04/17 15:37 12/04/17 15:37 12/04/17 15:37 Internal Medicine: Result - Labs CBC & Chem 7: 12/04/17 05:28 12/04/17 05:28 Labs: Short CBC 12/04/17 Range/Units 05:28 WBC 5.8 (4.3-11.1) K/mcL Hgb 12.9 (11.5-15.4) g/dL Hct 38.7 (35.3-44.9) % Plt Count 192 (140-400) K/mcL Neutrophils # 3.5 (1.6-8.9) K/mcL BMP 12/04/17 05:28 Sodium 142 Potassium 3.9 Chloride 112 H Carbon Dioxide 24 BUN 8 Creatinine 0.62 Glucose 124 H Calcium 10.0 - ABG Interpretation ABG results: PT/INR, D-dimer PT 15.1 Seconds (9.4-12.1) H 12/04/17 05:28 D-Dimer 989 ng/mLFEU (0-500) H 12/01/17 16:31 - Attending Attestation I examined this patient and my medical decision-making was reviewed with the Resident Physician on 12/04/17. I agree with the documented findings, disposition and treatment plan as described except to the extent set forth below. Ms Dempsey is currently admitted for acute bilateral PE. She remains moderate to high risk due to potential for worsening clinical status. Ms Dempsey feels OK. No fever or chills. No CP or SOB. Has been up walking around without issue. INR 1.3. No GI issues. Exam Alert Comfortable Mucus membranes dry Heart not tachy No wheeze Abd soft No edema I/P 1. Bilateral PE Further diagnoses and treatment as above. I had a long (greater than 30 min) discussion with patient and son regarding PE , coumadin, etc. I will ask hematology to see her for further information and assessment. Written info given on coumadin.
[2017-12-04] MEDS ORDERED: *HR* Warfarin 7.5 MG TABLET PO ONE (18:00)
[2017-12-04] MEDS: *HR* Heparin 5,000 UNIT/ML VIAL IVP PRN (21:35)
[2017-12-05 04:50] LABS: Heparin anti-factor XA UFH 0.47 IU/mL (0.30-0.70)
[2017-12-05 07:29] LABS: FACV Specimen WHOLE BLOOD
[2017-12-05 08:05] LABS: Fac V Leiden R506Q Mut Result NEGATIVE
[2017-12-05] MEDS: Fluticasone Propionate Nasal 50 MCG/SPRAY BOTTLE NS SCH (09:23)
--- NOTE | 2017-12-05 09:45 | Internal Med Progress Note ---
<Dennis Winters - Last Filed: 12/05/17 09:43> Date of Encounter: 12/05/17 Time of Encounter: 09:43 - Assessment and plan (1) Pulmonary embolism Current Visit: Yes Status: Acute Assessment and plan: -CT angiogram found evidence of bilateral PE -Unclear etiology at this time, no known risk factors -Anticoagulation workup pending -ECHO found no significant clinical findings. EF 70% -INR 2.0 today Plan - Continue heparin to coumadin bridge Qualifiers: Pulmonary embolism type: other Chronicity: acute Acute cor pulmonale presence: without acute cor pulmonale Qualified Code(s): I26.99 - Other pulmonary embolism without acute cor pulmonale (2) Vertigo Current Visit: Yes Status: Chronic Assessment and plan: Known history continue meclizine when needed (3) Arthritis Current Visit: Yes Status: Acute Assessment and plan: Pain management as necessary (4) Thyroid nodule Current Visit: Yes Status: Suspected Assessment and plan: Incidental finding on CT Follow up outpatient (5) DVT prophylaxis Current Visit: Yes Status: Acute Assessment and plan: On heparin and Coumadin - Subjective Interval history: Patient is doing very well. Patient has no new complaints. She is very anxious about her diagnosis and her general state of health. Denies chest pain , shortness of breath, headache, feve, chill, night sweats, lower extremity swelling, pain. INR 2.0 today - Constitutional Vitals: Temp Pulse Resp BP Pulse Ox 97.9 F 86 16 130/81 98 12/05/17 06:35 12/05/17 06:35 12/05/17 06:35 12/05/17 06:35 12/05/17 06:35 General appearance: Present: A&O X 3, no acute distress, answers questions appropriately - Head Head exam: Present: atraumatic, normal inspection, normocephalic - Eye Eye exam: Present: EOMI, PERRL - Respiratory Respiratory exam: Present: CTAB. Absent: respiratory distress, rhonchi, stridor , wheezes, tachypnea - Cardiovascular Cardiovascular exam: Present: RRR, +S1, +S2. Absent: diastolic murmur, +S3, +S4 , systolic murmur - Neurological Exam Neurological exam: Present: alert, CN II-XII intact, oriented X3, no focal deficits - Psychiatric Psychiatric exam: Present: anxious, normal affect, normal mood - Skin Skin exam: Present: dry, warm. Absent: diaphoretic, petechiae, rash Internal Medicine: Result - Labs CBC & Chem 7: 12/04/17 05:28 12/04/17 05:28 - ABG Interpretation ABG results: PT/INR, D-dimer PT 22.0 Seconds (9.4-12.1) H 12/05/17 04:00 D-Dimer 989 ng/mLFEU (0-500) H 12/01/17 16:31 Consult Discharge Plan - Plan Referrals: Hiro Gerber MD [Primary Care Provider] - Prescriptions: Enoxaparin [Lovenox] 100 mg SQ BID #10 syr <Gregg Carmona - Last Filed: 12/05/17 19:47> Date of Encounter: 12/05/17 - Assessment and plan (1) Pulmonary embolism Current Visit: Yes Status: Acute Qualifiers: Pulmonary embolism type: other Chronicity: acute Acute cor pulmonale presence: without acute cor pulmonale Qualified Code(s): I26.99 - Other pulmonary embolism without acute cor pulmonale (2) Vertigo Current Visit: Yes Status: Chronic (3) Hypokalemia Current Visit: Yes Status: Resolved (4) Arthritis Current Visit: Yes Status: Acute (5) Thyroid nodule Current Visit: Yes Status: Acute - Constitutional Vitals: Temp Pulse Resp BP Pulse Ox 98 F 90 18 147/97 98 12/05/17 15:34 12/05/17 15:34 12/05/17 15:34 12/05/17 15:34 12/05/17 15:34 Internal Medicine: Result - Labs CBC & Chem 7: 12/04/17 05:28 12/04/17 05:28 - ABG Interpretation ABG results: PT/INR, D-dimer PT 22.0 Seconds (9.4-12.1) H 12/05/17 04:00 D-Dimer 989 ng/mLFEU (0-500) H 12/01/17 16:31 - Attending Attestation I examined this patient and my medical decision-making was reviewed with the Resident Physician on 12/05/17. I agree with the documented findings, disposition and treatment plan as described except to the extent set forth below. Ms Dempsey is currently admitted for acute bilateral PE. She remains moderate to high risk due to potential for worsening clinical status. Ms Dempsey is doing OK. Not sleeping well. Anxious. No pain. No GI issues. No fever or chills. Exam alert Comfortable Mucus membranes dry Heart reg No wheeze I/P 1. PE Further diagnoses and plan as above.
--- NOTE | 2017-12-05 11:14 | Oncology Inp Consult Note ---
<Chet Roland - Last Filed: 12/05/17 11:10> Date of Encounter: 12/05/17 Time of Encounter: 11:10 Assessment and Plan (1) Pulmonary embolism Status: Acute Assessment and plan: Patient had unprovoked b/e PE with low clot burden without need of oxygenation Echocardiogram showed LVEF of 70% with normal left ventricular chamber size, mild left ventricular diastolic dysfunction and normal right ventricular structure and function without any evidence of pulmonary hypertension Patient denies recent surgery, bedridden status, long car ride, airplane ride Patient had a colonoscopy 3 years ago which was negative for any malignancy or polyps. She is up-to-date on her mammograms and previous mammograms have been negative. She had a hysterectomy 11 years ago and previous Pap smears were negative. Patient denies family history( including children) or personal history of clotting disorders Patient is currently being bridged to Coumadin There is no need for further anticoagulation workup she will be on Coumadin for at least 6 months and have follow up with Dr. Esposito outpatient. Qualifiers: Pulmonary embolism type: other Chronicity: acute Acute cor pulmonale presence: without acute cor pulmonale Qualified Code(s): I26.99 - Other pulmonary embolism without acute cor pulmonale (2) Thyroid nodule Status: Acute Assessment and plan: Patient had a 1 cm thyroid mass seen on CTA. Her TSH was elevated at 8.482 free T4 and total T4 were within normal limits. Total T3 was within normal limits. Plan: Would recommend outpatient ultrasound of the thyroid nodule and follow-up with PCP. (3) Vertigo Status: Chronic Assessment and plan: Resolved currently As per primary - Data of Consult Patient: new to practice Consult date: 12/05/17 Requesting Physician: Gregg Carmona DO Primary Care Provider: Hiro Gerber - Consult Narrative Reason for consult: Pulmonary embolism History of present illness: Ms. Dempsey is a 57 year old female presented with chief complaint of vertigo. Patient states she has a history of vertigo and usually will sleep in a dark room until her symptoms resolve. However this episode persisted and she developed some mild shortness of breath but she did not know if secondary to anxiety. She denied headache, blurry vision, ear pain, ear discharge, eye pain , sore throat, rhinorrhea, neck pain, cough, sputum production, chest pain, palpitations, abdominal pain, nausea, vomiting, lower extremity pain, lower extremity edema, lower extremity erythema, numbness, tingling, syncope, fever, chills. In the emergency room a d-dimer was done and CTA showed bilateral pulmonary embolism without large clot burden or evidence of right heart strain. She did not require any supplemental oxygen but was tachycardic. She was started on heparin drip and remained hemodynamically stable. Hypercoagulable workup was drawn 4 hours after starting heparin drip. Patient denies history of blood clots or family history of blood clots. She denies recent surgery, long car ride or flying on an airplane. She denies being bedridden anyway she performed. She denies being on a contraceptive. Past Med Surg Social Fam HX - Past Medical History Medical history: arthritis Psychiatric history: no psych history - Past Surgical History Surgical History: hysterectomy Additional surgical history: carpel tunnel - Social History Smoking Status: Never smoker Smokeless Tobacco Status: No Alcohol use: none Drug use: none - Family History Mother Name: Maye Oswald Family Member Ethnicity: Non- Living Status: Age at : 74 Cause of : Ovarian Cancer Hx Family Cardiac Disorders: Yes (valve replacemet) Hx Family Cancer: Yes (ovarian) Medications and Allergies Fluticasone Propionate Nasal [Flonase] 1 spr NS DAILY PRN 12/01/17 [History] Enoxaparin [Lovenox] 100 mg SQ BID #10 syr 12/03/17 [Rx] 3 Allergy/AdvReac Type Severity Reaction Status Date / Time No Known Allergies Allergy Verified 12/01/17 18:51 Oncology - Exam - Constitutional Vitals: Temp Pulse Resp BP Pulse Ox 97.9 F 86 16 130/81 98 12/05/17 06:35 12/05/17 06:35 12/05/17 06:35 12/05/17 06:35 12/05/17 06:35 - Additional findings Additional findings: General: without distress HEENT: Head atraumatic, normocephalic, EOMI, PERRL, neck nontender to palpation , absent lymphadenopathy, Moist Mucous Membranes, Heart: Regular rate and rhythm with no murmur Lungs: Clear to auscultation bilaterally Abdomen: Soft nontender, nondistended positive bowel sounds Skin: warm and dry, absent rash Extremities: Absent pedal edema, Neuro: Cranial nerves II through XII intact, UE and LE sensation equal bilaterally, UE and LEstrength 5/5, alert oriented 3, Heel to stevens intact, finger to nose intact, Gait intact, rhombergs sign negative, b/l plantar reflexes downwards Vascular: Pedal and radial pulses 2 out of 4 Oncology - Results Labs: 3 12/05/17 12/05/17 12/04/17 10:03 04:00 19:41 WBC RBC Hgb Hct MCV MCH MCHC RDW Plt Count MPV Immature Gran % Seg Neutrophils % Lymphocytes % Monocytes % Eosinophils % Basophils % Neutrophils # Lymphocytes # Monocytes # Eosinophils # Basophils # Heparin Neutralization PT 22.0 H INR 2.0 D APTT Thrombin Time Plt Neutralization Lupus Anticoag INR Lupus Anticoag aPTT LA PTT Mix Pt/Norm 1:1 Dil Harman Viper Venom LA dRVVT Confirm dRVVT Mix LA Reptilase Time Hexag Phospholip Neutrl Lupus Anticoag Interp Plt Func Collagen/Epi Plt Func Collagen/ADP Protein C Antigen Protein S Antigen Heparin Anti-Xa, Unfract 0.40 0.47 0.25 L Factr V Leiden Specimen Factor V Leiden Interp Sodium Potassium Chloride Carbon Dioxide BUN Creatinine Est GFR ( Amer) Est GFR (Non-Af Amer) BUN/Creatinine Ratio Glucose Est Mean Plasma Glucose Hemoglobin A1c Calculated Osmolality Calcium Total Bilirubin Direct Bilirubin Indirect Bilirubin AST ALT Alkaline Phosphatase Serum Total Protein Albumin Globulin Albumin/Globulin Ratio Homocysteine TSH Free T4 Thyroxine (T4) Total T3 3 12/04/17 12/04/17 12/04/17 11:43 05:28 05:28 WBC 5.8 RBC 4.42 Hgb 12.9 Hct 38.7 MCV 87.6 MCH 29.2 MCHC 33.3 RDW 13.2 Plt Count 192 MPV 10.6 Immature Gran % 0.3 Seg Neutrophils % 60.6 Lymphocytes % 28.9 Monocytes % 8.9 Eosinophils % 1.0 Basophils % 0.3 Neutrophils # 3.5 Lymphocytes # 1.7 Monocytes # 0.5 Eosinophils # 0.1 Basophils # 0.0 Heparin Neutralization PT INR APTT Thrombin Time Plt Neutralization Lupus Anticoag INR Lupus Anticoag aPTT LA PTT Mix Pt/Norm 1:1 Dil Harman Viper Venom LA dRVVT Confirm dRVVT Mix LA Reptilase Time Hexag Phospholip Neutrl Lupus Anticoag Interp Plt Func Collagen/Epi Plt Func Collagen/ADP Protein C Antigen Protein S Antigen Heparin Anti-Xa, Unfract 0.26 L Factr V Leiden Specimen Factor V Leiden Interp Sodium 142 Potassium 3.9 Chloride 112 H Carbon Dioxide 24 BUN 8 Creatinine 0.62 Est GFR ( Amer) > 60 Est GFR (Non-Af Amer) > 60 BUN/Creatinine Ratio 13 Glucose 124 H Est Mean Plasma Glucose Hemoglobin A1c Calculated Osmolality 294 Calcium 10.0 Total Bilirubin Direct Bilirubin Indirect Bilirubin AST ALT Alkaline Phosphatase Serum Total Protein Albumin Globulin Albumin/Globulin Ratio Homocysteine TSH Free T4 Thyroxine (T4) Total T3 3 12/04/17 12/03/17 12/03/17 05:28 08:46 08:46 WBC 4.6 RBC 4.68 Hgb 13.8 Hct 41.3 MCV 88.2 MCH 29.5 MCHC 33.4 RDW 13.2 Plt Count 192 MPV 10.8 Immature Gran % 0.2 Seg Neutrophils % 62.9 Lymphocytes % 27.5 Monocytes % 7.2 Eosinophils % 1.5 Basophils % 0.7 Neutrophils # 2.9 Lymphocytes # 1.3 Monocytes # 0.3 Eosinophils # 0.1 Basophils # 0.0 Heparin Neutralization PT 15.1 H INR 1.3 APTT Thrombin Time Plt Neutralization Lupus Anticoag INR Lupus Anticoag aPTT LA PTT Mix Pt/Norm 1:1 Dil Harman Viper Venom LA dRVVT Confirm dRVVT Mix LA Reptilase Time Hexag Phospholip Neutrl Lupus Anticoag Interp Plt Func Collagen/Epi Plt Func Collagen/ADP Protein C Antigen Protein S Antigen Heparin Anti-Xa, Unfract 0.30 Factr V Leiden Specimen Factor V Leiden Interp Sodium 139 Potassium 3.7 Chloride 110 H Carbon Dioxide 23 BUN 8 Creatinine 0.74 Est GFR ( Amer) > 60 Est GFR (Non-Af Amer) > 60 BUN/Creatinine Ratio 11 Glucose 168 H Est Mean Plasma Glucose Hemoglobin A1c Calculated Osmolality 290 Calcium 10.2 Total Bilirubin Direct Bilirubin Indirect Bilirubin AST ALT Alkaline Phosphatase Serum Total Protein Albumin Globulin Albumin/Globulin Ratio Homocysteine TSH Free T4 0.89 Thyroxine (T4) 7.44 Total T3 1.25 3 12/03/17 12/03/17 12/03/17 05:32 05:32 00:21 WBC RBC Hgb Hct MCV MCH MCHC RDW Plt Count MPV Immature Gran % Seg Neutrophils % Lymphocytes % Monocytes % Eosinophils % Basophils % Neutrophils # Lymphocytes # Monocytes # Eosinophils # Basophils # Heparin Neutralization PT 12.0 INR 1.1 APTT Thrombin Time Plt Neutralization Lupus Anticoag INR Lupus Anticoag aPTT LA PTT Mix Pt/Norm 1:1 Dil Harman Viper Venom LA dRVVT Confirm dRVVT Mix LA Reptilase Time Hexag Phospholip Neutrl Lupus Anticoag Interp Plt Func Collagen/Epi Plt Func Collagen/ADP Protein C Antigen Protein S Antigen Heparin Anti-Xa, Unfract 0.32 0.27 L Factr V Leiden Specimen Factor V Leiden Interp Sodium Potassium Chloride Carbon Dioxide BUN Creatinine Est GFR ( Amer) Est GFR (Non-Af Amer) BUN/Creatinine Ratio Glucose Est Mean Plasma Glucose Hemoglobin A1c Calculated Osmolality Calcium Total Bilirubin Direct Bilirubin Indirect Bilirubin AST ALT Alkaline Phosphatase Serum Total Protein Albumin Globulin Albumin/Globulin Ratio Homocysteine TSH Free T4 Thyroxine (T4) Total T3 3 12/02/17 12/02/17 12/02/17 16:39 09:59 09:59 WBC RBC Hgb Hct MCV MCH MCHC RDW Plt Count MPV Immature Gran % Seg Neutrophils % Lymphocytes % Monocytes % Eosinophils % Basophils % Neutrophils # Lymphocytes # Monocytes # Eosinophils # Basophils # Heparin Neutralization PT INR APTT Thrombin Time Plt Neutralization Lupus Anticoag INR Lupus Anticoag aPTT LA PTT Mix Pt/Norm 1:1 Dil Harman Viper Venom LA dRVVT Confirm dRVVT Mix LA Reptilase Time Hexag Phospholip Neutrl Lupus Anticoag Interp Plt Func Collagen/Epi 88 Plt Func Collagen/ADP 69 Protein C Antigen Protein S Antigen Heparin Anti-Xa, Unfract 0.48 0.24 L Factr V Leiden Specimen Factor V Leiden Interp Sodium Potassium Chloride Carbon Dioxide BUN Creatinine Est GFR ( Amer) Est GFR (Non-Af Amer) BUN/Creatinine Ratio Glucose Est Mean Plasma Glucose Hemoglobin A1c Calculated Osmolality Calcium Total Bilirubin Direct Bilirubin Indirect Bilirubin AST ALT Alkaline Phosphatase Serum Total Protein Albumin Globulin Albumin/Globulin Ratio Homocysteine TSH Free T4 Thyroxine (T4) Total T3 3 12/02/17 12/02/17 12/02/17 01:49 01:49 01:49 WBC RBC Hgb Hct MCV MCH MCHC RDW Plt Count MPV Immature Gran % Seg Neutrophils % Lymphocytes % Monocytes % Eosinophils % Basophils % Neutrophils # Lymphocytes # Monocytes # Eosinophils # Basophils # Heparin Neutralization PT INR APTT Thrombin Time Plt Neutralization Lupus Anticoag INR Lupus Anticoag aPTT LA PTT Mix Pt/Norm 1:1 Dil Harman Viper Venom LA dRVVT Confirm dRVVT Mix LA Reptilase Time Hexag Phospholip Neutrl Lupus Anticoag Interp Plt Func Collagen/Epi Plt Func Collagen/ADP Protein C Antigen Protein S Antigen Heparin Anti-Xa, Unfract 0.81 H Factr V Leiden Specimen Factor V Leiden Interp Sodium Potassium Chloride Carbon Dioxide BUN Creatinine Est GFR ( Amer) Est GFR (Non-Af Amer) BUN/Creatinine Ratio Glucose Est Mean Plasma Glucose 123 Hemoglobin A1c 5.9 H Calculated Osmolality Calcium Total Bilirubin Direct Bilirubin Indirect Bilirubin AST ALT Alkaline Phosphatase Serum Total Protein Albumin Globulin Albumin/Globulin Ratio Homocysteine TSH 8.482 H Free T4 Thyroxine (T4) Total T3 3 12/02/17 12/02/17 12/02/17 01:49 01:49 01:49 WBC RBC Hgb Hct MCV MCH MCHC RDW Plt Count MPV Immature Gran % Seg Neutrophils % Lymphocytes % Monocytes % Eosinophils % Basophils % Neutrophils # Lymphocytes # Monocytes # Eosinophils # Basophils # Heparin Neutralization 46 PT INR APTT Thrombin Time >150.0 H Plt Neutralization NOT APPLICABLE Lupus Anticoag INR 14.4 Lupus Anticoag aPTT >150 H LA PTT Mix Pt/Norm 1:1 NOT APPLICABLE Dil Harman Viper Venom 30 L LA dRVVT Confirm NOT APPLICABLE dRVVT Mix NOT APPLICABLE LA Reptilase Time 19.1 Hexag Phospholip Neutrl NOT APPLICABLE Lupus Anticoag Interp SEE NOTE Plt Func Collagen/Epi Plt Func Collagen/ADP Protein C Antigen 124 Protein S Antigen Heparin Anti-Xa, Unfract Factr V Leiden Specimen Factor V Leiden Interp Sodium Potassium Chloride Carbon Dioxide BUN Creatinine Est GFR ( Amer) Est GFR (Non-Af Amer) BUN/Creatinine Ratio Glucose Est Mean Plasma Glucose Hemoglobin A1c Calculated Osmolality Calcium Total Bilirubin Direct Bilirubin Indirect Bilirubin AST ALT Alkaline Phosphatase Serum Total Protein Albumin Globulin Albumin/Globulin Ratio Homocysteine 8 TSH Free T4 Thyroxine (T4) Total T3 3 12/02/17 12/02/17 12/02/17 01:49 01:49 01:49 WBC RBC Hgb Hct MCV MCH MCHC RDW Plt Count MPV Immature Gran % Seg Neutrophils % Lymphocytes % Monocytes % Eosinophils % Basophils % Neutrophils # Lymphocytes # Monocytes # Eosinophils # Basophils # Heparin Neutralization PT 12.1 INR 1.1 APTT 158.4 H* Thrombin Time Plt Neutralization Lupus Anticoag INR Lupus Anticoag aPTT LA PTT Mix Pt/Norm 1:1 Dil Harman Viper Venom LA dRVVT Confirm dRVVT Mix LA Reptilase Time Hexag Phospholip Neutrl Lupus Anticoag Interp Plt Func Collagen/Epi Plt Func Collagen/ADP Protein C Antigen Protein S Antigen 126 Heparin Anti-Xa, Unfract Factr V Leiden Specimen Factor V Leiden Interp Sodium 143 Potassium 3.9 Chloride 113 H Carbon Dioxide 24 BUN 6 Creatinine 0.65 Est GFR ( Amer) > 60 Est GFR (Non-Af Amer) > 60 BUN/Creatinine Ratio 9 Glucose 115 H Est Mean Plasma Glucose Hemoglobin A1c Calculated Osmolality 295 Calcium 10.3 Total Bilirubin 0.4 Direct Bilirubin 0.0 Indirect Bilirubin 0.4 AST 14 ALT 15 Alkaline Phosphatase 68 Serum Total Protein 6.9 Albumin 4.2 Globulin 2.7 Albumin/Globulin Ratio 1.6 Homocysteine TSH Free T4 Thyroxine (T4) Total T3 3 12/02/17 12/01/17 01:49 21:37 WBC 7.1 RBC 4.45 Hgb 13.0 Hct 38.3 MCV 86.1 MCH 29.2 MCHC 33.9 RDW 13.1 Plt Count 213 MPV 10.8 Immature Gran % 0.3 Seg Neutrophils % 67.9 Lymphocytes % 24.2 Monocytes % 7.0 Eosinophils % 0.3 Basophils % 0.3 Neutrophils # 4.8 Lymphocytes # 1.7 Monocytes # 0.5 Eosinophils # 0.0 Basophils # 0.0 Heparin Neutralization PT INR APTT Thrombin Time Plt Neutralization Lupus Anticoag INR Lupus Anticoag aPTT LA PTT Mix Pt/Norm 1:1 Dil Harman Viper Venom LA dRVVT Confirm dRVVT Mix LA Reptilase Time Hexag Phospholip Neutrl Lupus Anticoag Interp Plt Func Collagen/Epi Plt Func Collagen/ADP Protein C Antigen Protein S Antigen Heparin Anti-Xa, Unfract Factr V Leiden Specimen WHOLE BLOOD Factor V Leiden Interp NEGATIVE Sodium Potassium Chloride Carbon Dioxide BUN Creatinine Est GFR ( Amer) Est GFR (Non-Af Amer) BUN/Creatinine Ratio Glucose Est Mean Plasma Glucose Hemoglobin A1c Calculated Osmolality Calcium Total Bilirubin Direct Bilirubin Indirect Bilirubin AST ALT Alkaline Phosphatase Serum Total Protein Albumin Globulin Albumin/Globulin Ratio Homocysteine TSH Free T4 Thyroxine (T4) Total T3 Consult Discharge Plan - Plan Referrals: Hiro Gerber MD [Primary Care Provider] - Prescriptions: Enoxaparin [Lovenox] 100 mg SQ BID #10 syr <Bonilla Esposito S - Last Filed: 12/05/17 19:44> Date of Encounter: 12/05/17 - Data of Consult Requesting Physician: Gregg Carmona DO Primary Care Provider: Hiro Gerber - Consult Narrative History of present illness: Ms. Dempsey is a 57 year old female Oncology - Exam - Constitutional Vitals: Temp Pulse Resp BP Pulse Ox 98 F 90 18 147/97 98 12/05/17 15:34 12/05/17 15:34 12/05/17 15:34 12/05/17 15:34 12/05/17 15:34 Oncology - Results Labs: 3 12/05/17 12/05/17 12/04/17 10:03 04:00 19:41 WBC RBC Hgb Hct MCV MCH MCHC RDW Plt Count MPV Immature Gran % Seg Neutrophils % Lymphocytes % Monocytes % Eosinophils % Basophils % Neutrophils # Lymphocytes # Monocytes # Eosinophils # Basophils # Heparin Neutralization PT 22.0 H INR 2.0 D APTT Thrombin Time Plt Neutralization Lupus Anticoag INR Lupus Anticoag aPTT LA PTT Mix Pt/Norm 1:1 Dil Harman Viper Venom LA dRVVT Confirm dRVVT Mix LA Reptilase Time Hexag Phospholip Neutrl Lupus Anticoag Interp Plt Func Collagen/Epi Plt Func Collagen/ADP Protein C Antigen Protein S Antigen Heparin Anti-Xa, Unfract 0.40 0.47 0.25 L Factr V Leiden Specimen Factor V Leiden Interp Sodium Potassium Chloride Carbon Dioxide BUN Creatinine Est GFR ( Amer) Est GFR (Non-Af Amer) BUN/Creatinine Ratio Glucose Est Mean Plasma Glucose Hemoglobin A1c Calculated Osmolality Calcium Total Bilirubin Direct Bilirubin Indirect Bilirubin AST ALT Alkaline Phosphatase Serum Total Protein Albumin Globulin Albumin/Globulin Ratio Homocysteine TSH Free T4 Thyroxine (T4) Total T3 3 12/04/17 12/04/17 12/04/17 11:43 05:28 05:28 WBC 5.8 RBC 4.42 Hgb 12.9 Hct 38.7 MCV 87.6 MCH 29.2 MCHC 33.3 RDW 13.2 Plt Count 192 MPV 10.6 Immature Gran % 0.3 Seg Neutrophils % 60.6 Lymphocytes % 28.9 Monocytes % 8.9 Eosinophils % 1.0 Basophils % 0.3 Neutrophils # 3.5 Lymphocytes # 1.7 Monocytes # 0.5 Eosinophils # 0.1 Basophils # 0.0 Heparin Neutralization PT INR APTT Thrombin Time Plt Neutralization Lupus Anticoag INR Lupus Anticoag aPTT LA PTT Mix Pt/Norm 1:1 Dil Harman Viper Venom LA dRVVT Confirm dRVVT Mix LA Reptilase Time Hexag Phospholip Neutrl Lupus Anticoag Interp Plt Func Collagen/Epi Plt Func Collagen/ADP Protein C Antigen Protein S Antigen Heparin Anti-Xa, Unfract 0.26 L Factr V Leiden Specimen Factor V Leiden Interp Sodium 142 Potassium 3.9 Chloride 112 H Carbon Dioxide 24 BUN 8 Creatinine 0.62 Est GFR ( Amer) > 60 Est GFR (Non-Af Amer) > 60 BUN/Creatinine Ratio 13 Glucose 124 H Est Mean Plasma Glucose Hemoglobin A1c Calculated Osmolality 294 Calcium 10.0 Total Bilirubin Direct Bilirubin Indirect Bilirubin AST ALT Alkaline Phosphatase Serum Total Protein Albumin Globulin Albumin/Globulin Ratio Homocysteine TSH Free T4 Thyroxine (T4) Total T3 3 12/04/17 12/03/17 12/03/17 05:28 08:46 08:46 WBC 4.6 RBC 4.68 Hgb 13.8 Hct 41.3 MCV 88.2 MCH 29.5 MCHC 33.4 RDW 13.2 Plt Count 192 MPV 10.8 Immature Gran % 0.2 Seg Neutrophils % 62.9 Lymphocytes % 27.5 Monocytes % 7.2 Eosinophils % 1.5 Basophils % 0.7 Neutrophils # 2.9 Lymphocytes # 1.3 Monocytes # 0.3 Eosinophils # 0.1 Basophils # 0.0 Heparin Neutralization PT 15.1 H INR 1.3 APTT Thrombin Time Plt Neutralization Lupus Anticoag INR Lupus Anticoag aPTT LA PTT Mix Pt/Norm 1:1 Dil Harman Viper Venom LA dRVVT Confirm dRVVT Mix LA Reptilase Time Hexag Phospholip Neutrl Lupus Anticoag Interp Plt Func Collagen/Epi Plt Func Collagen/ADP Protein C Antigen Protein S Antigen Heparin Anti-Xa, Unfract 0.30 Factr V Leiden Specimen Factor V Leiden Interp Sodium 139 Potassium 3.7 Chloride 110 H Carbon Dioxide 23 BUN 8 Creatinine 0.74 Est GFR ( Amer) > 60 Est GFR (Non-Af Amer) > 60 BUN/Creatinine Ratio 11 Glucose 168 H Est Mean Plasma Glucose Hemoglobin A1c Calculated Osmolality 290 Calcium 10.2 Total Bilirubin Direct Bilirubin Indirect Bilirubin AST ALT Alkaline Phosphatase Serum Total Protein Albumin Globulin Albumin/Globulin Ratio Homocysteine TSH Free T4 0.89 Thyroxine (T4) 7.44 Total T3 1.25 3 12/03/17 12/03/17 12/03/17 05:32 05:32 00:21 WBC RBC Hgb Hct MCV MCH MCHC RDW Plt Count MPV Immature Gran % Seg Neutrophils % Lymphocytes % Monocytes % Eosinophils % Basophils % Neutrophils # Lymphocytes # Monocytes # Eosinophils # Basophils # Heparin Neutralization PT 12.0 INR 1.1 APTT Thrombin Time Plt Neutralization Lupus Anticoag INR Lupus Anticoag aPTT LA PTT Mix Pt/Norm 1:1 Dil Harman Viper Venom LA dRVVT Confirm dRVVT Mix LA Reptilase Time Hexag Phospholip Neutrl Lupus Anticoag Interp Plt Func Collagen/Epi Plt Func Collagen/ADP Protein C Antigen Protein S Antigen Heparin Anti-Xa, Unfract 0.32 0.27 L Factr V Leiden Specimen Factor V Leiden Interp Sodium Potassium Chloride Carbon Dioxide BUN Creatinine Est GFR ( Amer) Est GFR (Non-Af Amer) BUN/Creatinine Ratio Glucose Est Mean Plasma Glucose Hemoglobin A1c Calculated Osmolality Calcium Total Bilirubin Direct Bilirubin Indirect Bilirubin AST ALT Alkaline Phosphatase Serum Total Protein Albumin Globulin Albumin/Globulin Ratio Homocysteine TSH Free T4 Thyroxine (T4) Total T3 3 12/02/17 12/02/17 12/02/17 16:39 09:59 09:59 WBC RBC Hgb Hct MCV MCH MCHC RDW Plt Count MPV Immature Gran % Seg Neutrophils % Lymphocytes % Monocytes % Eosinophils % Basophils % Neutrophils # Lymphocytes # Monocytes # Eosinophils # Basophils # Heparin Neutralization PT INR APTT Thrombin Time Plt Neutralization Lupus Anticoag INR Lupus Anticoag aPTT LA PTT Mix Pt/Norm 1:1 Dil Harman Viper Venom LA dRVVT Confirm dRVVT Mix LA Reptilase Time Hexag Phospholip Neutrl Lupus Anticoag Interp Plt Func Collagen/Epi 88 Plt Func Collagen/ADP 69 Protein C Antigen Protein S Antigen Heparin Anti-Xa, Unfract 0.48 0.24 L Factr V Leiden Specimen Factor V Leiden Interp Sodium Potassium Chloride Carbon Dioxide BUN Creatinine Est GFR ( Amer) Est GFR (Non-Af Amer) BUN/Creatinine Ratio Glucose Est Mean Plasma Glucose Hemoglobin A1c Calculated Osmolality Calcium Total Bilirubin Direct Bilirubin Indirect Bilirubin AST ALT Alkaline Phosphatase Serum Total Protein Albumin Globulin Albumin/Globulin Ratio Homocysteine TSH Free T4 Thyroxine (T4) Total T3 3 12/02/17 12/02/17 12/02/17 01:49 01:49 01:49 WBC RBC Hgb Hct MCV MCH MCHC RDW Plt Count MPV Immature Gran % Seg Neutrophils % Lymphocytes % Monocytes % Eosinophils % Basophils % Neutrophils # Lymphocytes # Monocytes # Eosinophils # Basophils # Heparin Neutralization PT INR APTT Thrombin Time Plt Neutralization Lupus Anticoag INR Lupus Anticoag aPTT LA PTT Mix Pt/Norm 1:1 Dil Harman Viper Venom LA dRVVT Confirm dRVVT Mix LA Reptilase Time Hexag Phospholip Neutrl Lupus Anticoag Interp Plt Func Collagen/Epi Plt Func Collagen/ADP Protein C Antigen Protein S Antigen Heparin Anti-Xa, Unfract 0.81 H Factr V Leiden Specimen Factor V Leiden Interp Sodium Potassium Chloride Carbon Dioxide BUN Creatinine Est GFR ( Amer) Est GFR (Non-Af Amer) BUN/Creatinine Ratio Glucose Est Mean Plasma Glucose 123 Hemoglobin A1c 5.9 H Calculated Osmolality Calcium Total Bilirubin Direct Bilirubin Indirect Bilirubin AST ALT Alkaline Phosphatase Serum Total Protein Albumin Globulin Albumin/Globulin Ratio Homocysteine TSH 8.482 H Free T4 Thyroxine (T4) Total T3 3 12/02/17 12/02/17 12/02/17 01:49 01:49 01:49 WBC RBC Hgb Hct MCV MCH MCHC RDW Plt Count MPV Immature Gran % Seg Neutrophils % Lymphocytes % Monocytes % Eosinophils % Basophils % Neutrophils # Lymphocytes # Monocytes # Eosinophils # Basophils # Heparin Neutralization 46 PT INR APTT Thrombin Time >150.0 H Plt Neutralization NOT APPLICABLE Lupus Anticoag INR 14.4 Lupus Anticoag aPTT >150 H LA PTT Mix Pt/Norm 1:1 NOT APPLICABLE Dil Harman Viper Venom 30 L LA dRVVT Confirm NOT APPLICABLE dRVVT Mix NOT APPLICABLE LA Reptilase Time 19.1 Hexag Phospholip Neutrl NOT APPLICABLE Lupus Anticoag Interp SEE NOTE Plt Func Collagen/Epi Plt Func Collagen/ADP Protein C Antigen 124 Protein S Antigen Heparin Anti-Xa, Unfract Factr V Leiden Specimen Factor V Leiden Interp Sodium Potassium Chloride Carbon Dioxide BUN Creatinine Est GFR ( Amer) Est GFR (Non-Af Amer) BUN/Creatinine Ratio Glucose Est Mean Plasma Glucose Hemoglobin A1c Calculated Osmolality Calcium Total Bilirubin Direct Bilirubin Indirect Bilirubin AST ALT Alkaline Phosphatase Serum Total Protein Albumin Globulin Albumin/Globulin Ratio Homocysteine 8 TSH Free T4 Thyroxine (T4) Total T3 3 12/02/17 12/02/17 12/02/17 01:49 01:49 01:49 WBC RBC Hgb Hct MCV MCH MCHC RDW Plt Count MPV Immature Gran % Seg Neutrophils % Lymphocytes % Monocytes % Eosinophils % Basophils % Neutrophils # Lymphocytes # Monocytes # Eosinophils # Basophils # Heparin Neutralization PT 12.1 INR 1.1 APTT 158.4 H* Thrombin Time Plt Neutralization Lupus Anticoag INR Lupus Anticoag aPTT LA PTT Mix Pt/Norm 1:1 Dil Harman Viper Venom LA dRVVT Confirm dRVVT Mix LA Reptilase Time Hexag Phospholip Neutrl Lupus Anticoag Interp Plt Func Collagen/Epi Plt Func Collagen/ADP Protein C Antigen Protein S Antigen 126 Heparin Anti-Xa, Unfract Factr V Leiden Specimen Factor V Leiden Interp Sodium 143 Potassium 3.9 Chloride 113 H Carbon Dioxide 24 BUN 6 Creatinine 0.65 Est GFR ( Amer) > 60 Est GFR (Non-Af Amer) > 60 BUN/Creatinine Ratio 9 Glucose 115 H Est Mean Plasma Glucose Hemoglobin A1c Calculated Osmolality 295 Calcium 10.3 Total Bilirubin 0.4 Direct Bilirubin 0.0 Indirect Bilirubin 0.4 AST 14 ALT 15 Alkaline Phosphatase 68 Serum Total Protein 6.9 Albumin 4.2 Globulin 2.7 Albumin/Globulin Ratio 1.6 Homocysteine TSH Free T4 Thyroxine (T4) Total T3 3 12/02/17 12/01/17 01:49 21:37 WBC 7.1 RBC 4.45 Hgb 13.0 Hct 38.3 MCV 86.1 MCH 29.2 MCHC 33.9 RDW 13.1 Plt Count 213 MPV 10.8 Immature Gran % 0.3 Seg Neutrophils % 67.9 Lymphocytes % 24.2 Monocytes % 7.0 Eosinophils % 0.3 Basophils % 0.3 Neutrophils # 4.8 Lymphocytes # 1.7 Monocytes # 0.5 Eosinophils # 0.0 Basophils # 0.0 Heparin Neutralization PT INR APTT Thrombin Time Plt Neutralization Lupus Anticoag INR Lupus Anticoag aPTT LA PTT Mix Pt/Norm 1:1 Dil Harman Viper Venom LA dRVVT Confirm dRVVT Mix LA Reptilase Time Hexag Phospholip Neutrl Lupus Anticoag Interp Plt Func Collagen/Epi Plt Func Collagen/ADP Protein C Antigen Protein S Antigen Heparin Anti-Xa, Unfract Factr V Leiden Specimen WHOLE BLOOD Factor V Leiden Interp NEGATIVE Sodium Potassium Chloride Carbon Dioxide BUN Creatinine Est GFR ( Amer) Est GFR (Non-Af Amer) BUN/Creatinine Ratio Glucose Est Mean Plasma Glucose Hemoglobin A1c Calculated Osmolality Calcium Total Bilirubin Direct Bilirubin Indirect Bilirubin AST ALT Alkaline Phosphatase Serum Total Protein Albumin Globulin Albumin/Globulin Ratio Homocysteine TSH Free T4 Thyroxine (T4) Total T3 - Attending Attestation I have seen and examined Ms. Dempsey and agree with the resident's assessment. We discussed her imaging as well as treatment plan. Secondary to financial concerns, she is been placed on Coumadin which she is tolerating well. Goal INR will be 2-3. We will plan for 6 months of full dose anticoagulation. At the end of 6 months, we will discuss options for cessation, transitioning to aspirin or low-dose anticoagulation. As this was an unprovoked event, her risk of recurrence over lifetime is around 30%. Per the WARFASA trial, aspirin we will decrease this risk by nearly 30%. Continuation of low-dose Coumadin would be reasonable as would be cessation of therapy. Thrombophilia testing has been pursued. This will not have implications with regards to the decision above. I usually recommend against thrombophilia testing unless they have children of childbearing age who are considering oral contraceptive use as prothrombin gene in fact 5 Leiden mutation may increase risk of thrombosis in these populations. As thrombophilia testing has been pursued, we will complete lupus anticoagulant testing with a beta 2 glycoprotein antibody, antiphospholipid antibody, anti-cardio Leiden antibody. Outpatient follow-up will be arranged in my office. We will otherwise sign off
[2017-12-05] MEDS: Heparin 25,000 UNIT/500 ML D5W 25,000 UNIT/500 ML BAG IVC SCH (13:10)
[2017-12-05] MEDS ORDERED: hydrOXYzine pamoate 25 MG CAPSULE PO PRN (16:35)
[2017-12-05 16:59] LABS: Prothrombin G20210A Specimen WHOLE BLOOD
[2017-12-05] MEDS ORDERED: *HR* Warfarin 5 MG TABLET PO ONE (18:00)
[2017-12-06 08:25] LABS: INR 3.6; Prothrombin Time 40.1 Seconds (9.4-12.1)
[2017-12-06] MEDS: Fluticasone Propionate Nasal 50 MCG/SPRAY BOTTLE NS SCH (09:14)
[2017-12-06 09:38] LABS: Prothrombin G20210A Mut Result NEGATIVE
--- NOTE | 2017-12-06 11:35 | Discharge Summary ---
- NOTES TO OUTPATIENT PROVIDER Notes to Outpatient Provider: Presented to ED with vertigo symptoms. D dimer elevated. CTA showed bilateral PEs. Admitted for treatment. Due to finances she elected to start Coumadin. We have referred for coumadin clinic if HCAP is approved. Otherwise lab draws with PCP. Orders not resulted at time of discharge: Pending orders 12/04/17 18:00 Urinalysis Reflex Cult & Micro [URIN] Routine 12/06/17 03:11 Antiphospholipid Ab High Spec AM 0400 Beta-2 Glycoprotein 1 IgG,M,A AM 0400 Cardiolipin Antibody, IGG AM 0400 Cardiolipin Antibody, IGM AM 0400 12/07/17 04:00 INR/PT [Prothrombin Time INR] [COAG] AM 0400 12/08/17 04:00 INR/PT [Prothrombin Time INR] [COAG] AM 0400 12/09/17 04:00 INR/PT [Prothrombin Time INR] [COAG] AM 0400 Date of Encounter: 12/06/17 Time of Encounter: 11:45 - Discharge Diagnosis (1) Pulmonary embolism Priority: Primary Status: Acute Qualifiers: Pulmonary embolism type: other Chronicity: acute Acute cor pulmonale presence: without acute cor pulmonale Qualified Code(s): I26.99 - Other pulmonary embolism without acute cor pulmonale (2) Vertigo Priority: Secondary Status: Chronic (3) Arthritis Priority: Secondary Status: Chronic (4) Thyroid nodule Priority: Secondary Status: Chronic Hospital course: Ms. Dempsey is a 57 year old female with hx of vertigo presented to ED with dizziness. D dimer noted to be elevated and CTA showed bilateral PE. She was subsequently admitted. Ms Dempsey was admitted to [facility]. She was started on IV heparin and due to finances was placed on coumadin. She had work up that was neg for cause of PE at this point. She slowly had increase in INR and education was given. She was seen by hematology for further evaluation. Today she is afebrile. INR 3.6 and she is ready for discharge home. Discharge discussed with: patient, family - Time Spent with Patient Total time spent providing and/or coordinating discharge services: 42min - Discharge Medications Prescriptions: hydrOXYzine pamoate [HydrOXYzine Pamoate] 25 mg PO HS PRN #30 capsule PRN Reason: Insomnia Warfarin [Coumadin] 5 mg PO 1800 #30 tablet Home Medications: Fluticasone Propionate Nasal [Flonase] 1 spr NS DAILY PRN 12/01/17 [History] Acetaminophen [Tylenol] 650 mg PO Q6HR PRN tablet 12/06/17 [Rx] Warfarin [Coumadin] 5 mg PO 1800 #30 tablet 12/06/17 [Rx] hydrOXYzine pamoate [HydrOXYzine Pamoate] 25 mg PO HS PRN #30 capsule 12/06/17 [ Rx] Allergies/Adverse Reactions: 3 Allergy/AdvReac Type Severity Reaction Status Date / Time No Known Allergies Allergy Verified 12/01/17 18:51 Date of admission: 12/01/17 20:45 Primary care physician: Hiro Gerber Consults: 12/04/17 09:30 Consult to Monotype Caster [CONS] Routine Reason for SW Consult: Currenlty patient has no insurance. Attempting to get patient injectable anticoagulant therapy over Coumadin (at least short term) for earlier hospital discharge. Help finding best outpatient care for INR monitoring ( coumadin clinic vs resident clinic) 12/04/17 17:13 Consult to Oncology Hematology [CONS] Routine Consulting Provider: Bonilla Esposito Reason for Consult: Bilateral PE - no apparent risk factor Time Notified: 16:30 Call Completed: Yes 12/04/17 17:14 consult to room cooler installer [Consult to Nutrition] [CONS] Routine Comment: Consulting Provider: NUTRITION Reason for Dietary Consult: Diet Education Other:: New coumadin Discharging clinician: Gregg Carmona Anticipated date of discharge: 12/06/17 - Constitutional Vitals: Temp Pulse Resp BP Pulse Ox 98 F 79 16 113/74 96 12/06/17 07:14 12/06/17 07:14 12/06/17 07:14 12/06/17 07:14 12/06/17 07:14 General appearance: Present: A&O X 3, answers questions appropriately - Head Head exam: Present: normocephalic - Eye Eye exam: Present: EOMI, conjuntiva pink - ENT ENT exam: Present: mucous membranes moist - Respiratory Respiratory exam: Present: CTAB. Absent: rales, wheezes - Cardiovascular Cardiovascular exam: Present: RRR. Absent: tachycardia - GI/Abdominal GI/Abdominal exam: Present: soft. Absent: tenderness - Extremities Exam Extremities exam: Present: warm. Absent: tenderness - Neurological Exam Neurological exam: Present: alert, oriented X3 - Skin Skin exam: Present: dry, warm - Patient Status Disposition: Home, Self-Care Condition: Good Functional capacity at discharge: independent ambulation Overall status at discharge: patient is progressing back to baseline - Discharge Instructions Instructions: Warfarin (By mouth), Enoxaparin (Injection), Pulmonary Embolism ( DC) Follow Up With: Hiro Gerber MD [Primary Care Provider] - (please call friday to make a follow up appointment for 5-7 days) Additional Instructions: No coumadin tonight 12/06 Take one half of a 5mg tablet (2.5 mg) on Friday. Have blood work drawn in lab on Friday. - Diet and Activity Activity: increase activity as tolerated Diet: regular diet (Per coumadin recommendation)
[2017-12-06 11:48] VITALS: BP 116/92
[2017-12-09 07:49] LABS: Antiphospholipid IgG High Spec 13 GPL (0-14); Antiphospholipid IgM High Spec 4 MPL (0-14)
== END 2017-12-06 12:53 | disposition home or self-care (01) | DRG 176 ==
LOC: EMEROO 15:45 → 2NENU 15:45 → SUATTDRO 20:45
PROVIDERS: ADMIT Internal Medicine; ATTEND Internal Medicine